=== PATIENT | female | born 1980 | race Caucasian/White ===

== ENCOUNTER 2023-09-24 17:32 | Inpatient (IN) | payer OTHER ==
[2023-09-24] VITALS (11 sets, daily range): BP systolic 81–116; BP diastolic 61–84
[~2023-09-24] VITALS: Ht 167.6 cm; Wt 199.5 kg
[2023-09-24] MEDS ORDERED: BUPROPION XL150 M1 PO (20:29)
[2023-09-24] MEDS ORDERED: VERAPAMIL PO (20:29)
[2023-09-24] MEDS ORDERED: DULOXETINE HCL60 M1 PO (20:29)
[2023-09-24] MEDS ORDERED: METOPROLOL TART25 MG PO (20:30)
[2023-09-24] MEDS ORDERED: KRILL OIL500 MG PO (20:30)
[2023-09-24] MEDS ORDERED: SYMBICORT 16010.2 GM INH (20:30)
[2023-09-24] MEDS ORDERED: [UNRECOGNIZED DRUG - OTHER] (20:31)
[2023-09-24] MEDS ORDERED: MULVITA PO (20:31)
[2023-09-24 21:22] LABS: Bun/Creatinine Ratio 16.5 (12.0-20.0); Calcium, Blood 9.1 mg/dL (8.5-10.1); Creatinine, Blood 0.91 mg/dL (0.40-1.00); Potassium, Blood 3.4 mmol/L (3.5-5.5)
--- NOTE | 2023-09-24 22:36 | NUR ---
PROVIDER PHONE CALL: Pt requesting food as she has not eaten all day. Dr Kennedy called and stated that pt may eat until midnight, then must be NPO. Pt notified, however pt states that she will not eat while in the ICU as she will not use bedside commode or toilet in room for BM.
--- NOTE | 2023-09-24 23:48 | NUR ---
PROVIDER UPDATE: Pt reports diaphoresis and numbness in bilateral hands. Dr Kennedy notified of this as well as current vital signs. RN instructed to titrate down esmolol and administer PO metoprolol.
[2023-09-25] VITALS (78 sets, daily range): BP systolic 73–166; BP diastolic 47–135
--- NOTE | 2023-09-25 00:13 | NUR ---
TUSHAR AT BEDSIDE.
--- NOTE | 2023-09-25 00:36 | NUR ---
PROVIDER PHONE CALL: Pt again complaining of diaphoresis now with nausea. Dr Church called and notified. RN instructed to stop esmolol. New order for zofran.
--- NOTE | 2023-09-25 01:15 | NUR ---
PROVIDER PHONE CALL: Dr Church called to clarify amio orders. See new order for loading dose.
[2023-09-25 03:33] LABS: Hematocrit 38.7 % (33.0-51.0); Hemoglobin 12.3 g/dL (11.5-16.0); Mean Corpuscular HGB 27.3 pg (26.0-34.0); Mean Corpuscular HGB Conc 31.8 g/dL (31.5-36.5); Mean Corpuscular Volume 86 fL (80-100); Mean Platelet Volume 8.6 fL (9.1-12.4); Platelet Count 495 K/mm3 (150-400); RDW Coefficient Variation 15.3 % (11.7-14.2); RDW Standard Deviation 47.8 fL (35.1-46.3); White Blood Cell Count 18.22 K/mm3 (4.00-11.30)
[2023-09-25 03:54] LABS: Very Low Density Lipoprot Chol 55 mg/dL (6-32)
[2023-09-25 03:55] LABS: Alanine Aminotransfer (ALT/SGP 22 U/L (12-78); Albumin, Blood 2.8 g/dL (3.4-5.0); Albumin/Globulin Ratio 0.7 (0.8-1.8); Alk Phos 77 U/L (50-136); Anion Gap 11 mmol/L (6-16); Aspartate Aminotrans (AST/SGOT 34 U/L (12-37); Bilirubin, Total 0.6 mg/dL (0.1-1.0); Blood Urea Nitrogen 17 mg/dL (8-24); Bun/Creatinine Ratio 19.1 (12.0-20.0); CHOL/HDL RATIO 3.9; CO2, Blood 25 mmol/L (21-32); Calcium, Blood 8.5 mg/dL (8.5-10.1); Chloride, Blood 101 mmol/L (98-108); Cholesterol 158 mg/dL (50-200); Creatinine, Blood 0.89 mg/dL (0.40-1.00); Globulin, Blood 4.3 g/dL (2.2-4.0); Glomerular Filtration Rate 82 (60-); Glucose, Blood 131 mg/dL (70-99); HDL Cholesterol 41 mg/dL (>39); LDL/HDL RATIO 1.5; Low Density Lipoprotein Chol 62 mg/dL (0-110); Potassium, Blood 3.9 mmol/L (3.5-5.5); Sodium, Blood 137 mmol/L (136-145); Total Protein, Blood 7.1 g/dL (6.4-8.2); Triglycerides 276 mg/dL (30-160)
[2023-09-25 04:11] LABS: BASOPHILS ABSOLUTE MAN 0.18 K/mm3 (0.00-0.23); BASOPHILS PERCENT MAN 1 % (0-2); EOSINOPHILS ABSOLUTE MAN 0.54 K/mm3 (0.00-0.68); EOSINOPHILS PERCENT MAN 3 % (0-6); LYMPHOCYTES ABSOLUTE MAN 4.19 K/mm3 (0.84-5.20); LYMPHOCYTES PERCENT MAN 23 % (21-46); MONOCYTES ABSOLUTE MAN 1.27 K/mm3 (0.16-1.47); MONOCYTES PERCENT MAN 7 % (4-13); NEUTROPHILS ABSOLUTE MAN 12.02 K/mm3 (1.96-9.15); SEG NEUTROPHILS PERCENT MAN 66 % (41-73); TOTAL CELLS COUNTED 100
--- NOTE | 2023-09-25 06:40 | NUR ---
SHIFT SUMMARY: Pt admitted from [facility] to ICU 14. She arrived with esmolol at 50. This was titrated up to max dose with minimal effect on HR. Planed to reduce dose and bolus, however pt was unable to tolerate esmolol due to nausea and diaphoresis. Esmolol was stopped and amio loading dose started. Heparin also started. Pt has been up to commode with standby assist. One dose of zofran given for nausea.
--- NOTE | 2023-09-25 07:00 | NUR ---
ASSUMPTION OF CARE: ASSUMED CARE OF PATIENT WITH STEF SILVERMAN RN. PATIENT SITTING UP IN BED. PATIENT DENIES CP OR NUMBNESS/TINGLING. REPORTS SOME SOB WITH ACTIVITY THAT IS NOT BASELINE FOR HER. PATIENT ON 2L VIA NC. SPO2 96-98% WHEN AWAKE. PATIENT HAS DESATURATIONS WITH SLEEPING. BPS IN THE 130S-140S, MAPS >65. HR IN THE 130S-140S, AFLUTTER. PATIENT ALERT AND ORIENTED X 4. ABLE TO EASILY MAKE NEEDS KNOWN. PERSONAL BELONGINGS AT BEDSIDE.
--- NOTE | 2023-09-25 19:00 | NUR ---
ASSUME CARE: I have assumed care of this patient.
--- NOTE | 2023-09-25 19:33 | NUR ---
SHIFT SUMMARY: NEURO: PATIENT ALERT AND ORIENTED X4 THROUGHOUT THE SHIFT. PATIENT DENIED NUMBNESS/TINGLING THROUGHOUT. PATIENT ABLE TO MAKE NEEDS KNOWN. CARDIAC: PATIENT DENIED CP THROUGHOUT THE SHIFT. PATIENT STARTED THE SHIFT IN AFLUTTER WITH A RATE IN THE 140S. MAPS >65. SBP IN THE 130S-140S. AT 14:58, PATIENT WAS CARDIOVERTED TO SINUS RHYTHM. HR IN THE 90S FOR THE REMAINDER OF THE SHIFT. ONCE CARDIOVERTED, SBPS IN THE 110S - 140S. RESPIRATORY: PATIENT REPORTED MILD SHORTNESS OF BREATH WITH ACTIVITY TODAY. NO DESATURATION NOTED WITH ACTIVITY. SPO2 >94%. PATIENT INITIALLY REQUIRED 2L VIA NC. APENEA NOTED WITH SLEEPING. O2 INCREASED TO 5L TO MAINTAIN SPO2. POST CARDIOVERSION, PATIENT REQUIRED CPAP. PATIENT RECEPTIVE TO CPAP USE WHEN SLEEPING AND REPORTS SHE WOULD LIKE TO WEAR IT DURING THE NIGHT. LUNG SOUNDS CLEAR AND DIMINISHED THROUGHOUT. GI/: PATIENT DENIED NAUSEA THROUGHOUT THE SHIFT. ABLE TO TOLERATE PO WITHOUT DISCOMFORT OR NAUSEA POST CARDIOVERSION. URINE IS LIGHT TO DARK YELLOW. PATIENT TOLERATED IV LASIX WELL. PATIENT'S OUTPUT BECAME A PLANT SECURITY GUARD YELLOW POST ADMINISTRATION. PSYCHSOCIAL: PATIENTS MOTHER AND SON AT BEDSIDE THIS EVENING. THEY HAVE A SUPPORTIVE RELATIONSHIP. PATIENT CURRENTLY LIVES WITH HER MOTHER AND ADULT SON. PATIENT REPORTS THAT IT IS "HER TURN" TO IMPROVE HER HEALTH.
--- NOTE | 2023-09-25 20:36 | NUR ---
INFILTRATION: Right forearm IV with amiodarone infiltrated. Regan sized area of redness and induration noted. Angela in pharmacy called for futher instruction. IV aspirated and discontinued. Compression applied to the area.
[2023-09-26] VITALS (31 sets, daily range): BP systolic 95–166; BP diastolic 64–111
[2023-09-26 02:50] LABS: BASOPHILS ABSOLUTE AUTO 0.05 K/mm3 (0.00-0.23); BASOPHILS PERCENT AUTO 0 % (0-2); EOSINOPHILS ABSOLUTE AUTO 0.35 K/mm3 (0.00-0.68); EOSINOPHILS PERCENT AUTO 2 % (0-6); Hematocrit 34.9 % (33.0-51.0); IMMATURE GRAN ABSOLUTE AUTO 0.07 K/mm3 (0.00-0.10); IMMATURE GRAN PERCENT AUTO 1 % (0-1); LYMPHOCYTES ABSOLUTE AUTO 2.61 K/mm3 (0.84-5.20); LYMPHOCYTES PERCENT AUTO 17 % (21-46); MONOCYTES ABSOLUTE AUTO 1.63 K/mm3 (0.16-1.47); MONOCYTES PERCENT AUTO 11 % (4-13); Mean Corpuscular HGB 27.6 pg (26.0-34.0); Mean Corpuscular HGB Conc 31.5 g/dL (31.5-36.5); Mean Corpuscular Volume 88 fL (80-100); Mean Platelet Volume 9.3 fL (9.1-12.4); NEUTROPHILS ABSOLUTE AUTO 10.61 K/mm3 (1.96-9.15); NEUTROPHILS PERCENT AUTO 69 % (41-73); Platelet Count 424 K/mm3 (150-400); RDW Coefficient Variation 15.3 % (11.7-14.2); RDW Standard Deviation 48.8 fL (35.1-46.3); Red Blood Cell Count 3.99 M/mm3 (3.80-5.20); White Blood Cell Count 15.32 K/mm3 (4.00-11.30)
[2023-09-26 03:03] LABS: Bun/Creatinine Ratio 18.2 (12.0-20.0); Calcium, Blood 8.6 mg/dL (8.5-10.1); Creatinine, Blood 0.88 mg/dL (0.40-1.00); Magnesium, Blood 2.1 mg/dL (1.6-2.4); Potassium, Blood 3.4 mmol/L (3.5-5.5)
--- NOTE | 2023-09-26 05:33 | NUR ---
SHIFT SUMMARY: Pt up to commode with standby assist. She slept most of night on BIPAP with minimal desaturations. BIPAP 16/8, rate 12 with 7 liter bleed in. HR in NSR/sinus tach throughout night without events. Pt has denied chest pain. NPO since midnight. Right forearm without redness or induration at this time. Family was at bedside at beginning of shift and was updated on plan of care.
--- NOTE | 2023-09-26 07:00 | NUR ---
ASSUMPTION OF CARE: ASSUMED CARE OF PATIENT WITH STEF SILVERMAN. PATIENT RESTING IN BED. PATIENT DENIES SHORTNESS OF BREATH, DIFFICULTY BREATHING, OR CHEST PAIN. PATIENT REPORTS SHE SLEPT WELL ON THE CPAP AND THEN BIPAP DURING THE NIGHT. PATIENT CURRENTLY ON 5L WITH SPO2 >96%. PATIENT CONTINUES TO BE IN SINUS RHYTHM. SBPS IN THE 120S-140S. HR IN THE 90S. PATIENT UP TO BSC WITHOUT DIFFICULTY, CP, SOB OR DESATURATIONS. PATIENT CONTINUES TO BE NPO FOR MORNING ANGIOGRAM.
--- NOTE | 2023-09-26 11:30 | NUR ---
RETURN FROM SALES REPRESENTATIVE: PATIENT RETURNED IN BED. PATIENT REPORTS MILD HEADACHE. PATIENT DENIES CHEST PAIN, NUMBNESS/TINGLING OR SOB. FINGERS IN RIGHT HAND (AT RADIAL SITE) HAVE C/M/S PRESENT. TR BAND IN PLACE. MINIMAL BLOOD NOTED AT PUNCTURE SITE. SPO2 ON RIGHT INDEX FINGER - WAVEFORM PRESENT AND PATIENTS SPO2 >94%. HR IN THE 90S. SBPS IN THE 120S-140S. ARM BAND IN PLACE. PATIENT REPORTS UNDERSTANDING OF MOBILITY RESTRICTIONS AND IS FOLLOWING DIRECTIONS.
--- NOTE | 2023-09-26 13:57 | NUR ---
Spiritual Care Attempted. Pt. is awake and sitting up in a chair. [place] welcomed my visit but requested I help her summon a nurse. Pt. verbalized gratitude for the visit and that she she anticipated discharge this afternoon.
--- NOTE | 2023-09-26 15:06 | NUR ---
Per post acute care registered nurse, Miriam, a referral has been sent to [facility] for pt to receive an overnight oximetry study and [facility] will contact the pt for further arrangements.
[2023-09-26] MEDS ORDERED: VERA120 PO (16:44)
[2023-09-26] MEDS ORDERED: Amiodarone HCl200 MG PO (16:48)
[2023-09-26] MEDS ORDERED: FURO40 PO (16:52)
[2023-09-26] MEDS ORDERED: XARELTO20 MG PO (16:55)
[2023-09-26] MEDS ORDERED: POTCHL20ER PO (16:56)
--- NOTE | 2023-09-26 18:42 | NUR ---
SHIFT SUMMARY: NEURO: PATIENT ALERT AND ORIENTED THROUGHOUT THE SHIFT. PATIENT DENIED NUMBNESS/TINGLING IN ALL EXTREMITIES. CARDIAC: PATIENT OFF THE UNIT THIS MORNING FOR ANGIOGRAM. NO INTERVENTIONS WERE REQUIRED. PATIENT REMAINED IN SINUS THROUGHOUT THE SHIFT. HR IN THE 90S. SBPS IN THE 120S-140S. PATIENT EDUCATION ON HOME MEDICATIONS. PATIENT ABLE TO VERBALIZE INSTRUCTIONS AND IMPORTANCE OF MEDICATION COMPLIANCE. NO CHANGES TO ACCESS SITE. TR BAND WAS SUCCESSFULLY DEFLATED AND REMOVED PER PROTOCOL. RESPIRATORY: POST CATHETERIZATION, PATIENT MAINTAINED SPOW >92% ON ROOM AIR. PATIENT ABLE TO GET CONNECTED TO RECEIVE EQUIPMENT FOR HOME OXIMETRY STUDY. PATIENT DENIED SHORTNESS OF BREATH OR DIFFICULTY BREATHING THROUGHOUT THE SHIFT. PATIENT UP TO BSC AND CHAIR WITHOUT ANY DESATURATIONS. GI: PATIENT TOLERATING PO WITHOUT DIFFICULTY. DENIES NAUSEA OR GASTRIC UPSET. : PATIENT VOIDING WITHOUT DIFFICULTY. DENIES ITCHING OR BURNING. URINE IS YELLOW IN COLOR. PSYCHSOCIAL: PATIENT IS MOTIVATED TO MAKE CHANGES. PATIENT'S MOTHER IS INVOLVED WITH HER CARE AND SUPPORTIVE OF THE PATIENT. EDUCATION PROVIDED TO THE PATIENT FROM THE RN. ANIMAL ASSISTANT RENY ABLE TO DISCUSS DIET WITH THE PATIENT PRIOR TO DISCHARGE.
--- NOTE | 2023-09-26 19:14 | NUR ---
Patient has discharged from unit. Pt is from [place], but medications called in to [facility] in [place] per pt request to ensure pt is able to get meds before pharmacy closes today. Pt's mom was able to continuous pickling line pickler new medications for patient. Xarelto coupon and samples given to pt. At time of discharge, TR site dressed with clear tegaderm and wrist immobilization board. Color, sensation, pulses, capillary refill equal BUE. Pt verbalizes understanding of activity limitations with TR site including showering and management of rebleed.
== END 2023-09-26 19:12 | disposition home or self-care (01) | DRG 280 ==
LOC: PCU 17:32 → ICUE 20:21
PROVIDERS: Family Medicine; Internal Medicine Cardiovascular Disease; Nurse Practitioner Acute Care; ADMIT Internal Medicine
PROC: 5A09357 Assistance with Respiratory Ventilation, Less than 24 Consecutive Hours, Continuous Positive Airway Pressure (ICD-10-PCS; 2023-09-24)
PROC: 5A2204Z Restoration of Cardiac Rhythm, Single (ICD-10-PCS; 2023-09-25)
PROC: B24BZZ4 Ultrasonography of Heart with Aorta, Transesophageal (ICD-10-PCS; 2023-09-25)
PROC: B2111ZZ Fluoroscopy of Multiple Coronary Arteries using Low Osmolar Contrast (ICD-10-PCS; 2023-09-26)
PROC: B241ZZ3 Ultrasonography of Multiple Coronary Arteries, Intravascular (ICD-10-PCS; 2023-09-26)
PROC: 4A023N7 Measurement of Cardiac Sampling and Pressure, Left Heart, Percutaneous Approach (ICD-10-PCS; principal; 2023-09-26 10:00)
DX: I48.92 Unspecified atrial flutter (principal); I50.31 Acute diastolic (congestive) heart failure; I21.A1 Myocardial infarction type 2; G47.33 Obstructive sleep apnea (adult) (pediatric); R82.71 Bacteriuria; E66.01 Morbid (severe) obesity due to excess calories; E87.6 Hypokalemia; E83.42 Hypomagnesemia; D64.9 Anemia, unspecified; I11.0 Hypertensive heart disease with heart failure; J45.909 Unspecified asthma, uncomplicated; I25.10 Atherosclerotic heart disease of native coronary artery without angina pectoris; R73.9 Hyperglycemia, unspecified; E78.5 Hyperlipidemia, unspecified; M54.50 Low back pain, unspecified; G89.29 Other chronic pain; F32.A Depression, unspecified; F41.9 Anxiety disorder, unspecified; F43.10 Post-traumatic stress disorder, unspecified; G25.81 Restless legs syndrome; Z87.891 Personal history of nicotine dependence; Z88.1 Allergy status to other antibiotic agents; Z91.048 Other nonmedicinal substance allergy status; Z79.899 Other long term (current) drug therapy
CPT/HCPCS: 36415; 76937; 80048; 80053; 80061; 81025; 83036; 83735; 84443; 84484; 85025; 85520; 87086; 93005; 93010; 93312; 93325; 93454; 94640; 94660; 94664; 94762; 99152; 99153; A9270; C1751; C1769; C1887; C1894; C8929; J0282; J0696; J1644; J1940; J2250; J2405; J2704; J3010; J3475; J7030; J7050; J7060; Q9957; Q9967

== ENCOUNTER 2023-09-28 05:23 | Emergency (ER) | payer OTHER ==
[~2023-09-28] VITALS: Ht 167.6 cm; Wt 198.2 kg
[~2023-09-28 05:23] MED LIST: Amiodarone HCl200 MG PO; BUPROPION XL150 M1 PO; DULOXETINE HCL60 M1 PO; FURO40 PO; KRILL OIL500 MG PO; METOPROLOL TART25 MG PO; MULVITA PO; POTCHL20ER PO; SYMBICORT 16010.2 GM INH; VERA120 PO; VERAPAMIL PO; XARELTO20 MG PO; [UNRECOGNIZED DRUG - OTHER]
[2023-09-28 07:21] LABS: BASOPHILS ABSOLUTE AUTO 0.03 K/mm3 (0.00-0.23); BASOPHILS PERCENT AUTO 0 % (0-2); EOSINOPHILS ABSOLUTE AUTO 0.39 K/mm3 (0.00-0.68); EOSINOPHILS PERCENT AUTO 3 % (0-6); Hematocrit 34.9 % (33.0-51.0); Hemoglobin 10.8 g/dL (11.5-16.0); IMMATURE GRAN ABSOLUTE AUTO 0.07 K/mm3 (0.00-0.10); IMMATURE GRAN PERCENT AUTO 1 % (0-1); LYMPHOCYTES ABSOLUTE AUTO 1.89 K/mm3 (0.84-5.20); LYMPHOCYTES PERCENT AUTO 13 % (21-46); MONOCYTES ABSOLUTE AUTO 1.21 K/mm3 (0.16-1.47); MONOCYTES PERCENT AUTO 8 % (4-13); Mean Corpuscular HGB 27.1 pg (26.0-34.0); Mean Corpuscular HGB Conc 30.9 g/dL (31.5-36.5); Mean Corpuscular Volume 88 fL (80-100); Mean Platelet Volume 8.8 fL (9.1-12.4); NEUTROPHILS ABSOLUTE AUTO 11.28 K/mm3 (1.96-9.15); NEUTROPHILS PERCENT AUTO 76 % (41-73); Platelet Count 417 K/mm3 (150-400); RDW Coefficient Variation 15.5 % (11.7-14.2); RDW Standard Deviation 48.9 fL (35.1-46.3); Red Blood Cell Count 3.98 M/mm3 (3.80-5.20); White Blood Cell Count 14.87 K/mm3 (4.00-11.30)
[2023-09-28 07:45] LABS: Albumin, Blood 2.8 g/dL (3.4-5.0); Albumin/Globulin Ratio 0.6 (0.8-1.8); Bilirubin, Total 0.5 mg/dL (0.1-1.0); Bun/Creatinine Ratio 14.5 (12.0-20.0); Calcium, Blood 8.7 mg/dL (8.5-10.1); Creatinine, Blood 0.76 mg/dL (0.40-1.00); Globulin, Blood 4.4 g/dL (2.2-4.0); Potassium, Blood 4.1 mmol/L (3.5-5.5); Total Protein, Blood 7.2 g/dL (6.4-8.2)
[2023-09-28 08:25] VITALS: BP 157/78
== END 2023-09-28 08:27 | disposition home or self-care (01) ==
LOC: ER 05:23
PROVIDERS: Emergency Medicine
DX: I11.0 Hypertensive heart disease with heart failure (principal); I50.31 Acute diastolic (congestive) heart failure; D64.9 Anemia, unspecified; E66.01 Morbid (severe) obesity due to excess calories; Z68.45 Body mass index [BMI] 70 or greater, adult; I25.10 Atherosclerotic heart disease of native coronary artery without angina pectoris; D72.829 Elevated white blood cell count, unspecified; Z88.1 Allergy status to other antibiotic agents; Z91.011 Allergy to milk products; Z91.048 Other nonmedicinal substance allergy status; Z79.899 Other long term (current) drug therapy; Z79.51 Long term (current) use of inhaled steroids; Z79.01 Long term (current) use of anticoagulants; Z87.891 Personal history of nicotine dependence
CPT/HCPCS: 71045; 80053; 83880; 85025; 93005; 93010; 96374; 99284-25; J1940